=== PATIENT | female | born 1965 | race Caucasian/White ===

== ENCOUNTER 2021-05-23 17:00 | Emergency (ER) | payer OTHER ==
[2021-05-23 17:08] VITALS: BP 134/89; PULSE 74; TEMP 97.9; BMI 31.7
[2021-05-23] MEDS ORDERED: KETOROLAC TROMETHAMINE 30 MG/1 ML VIAL IM ONE (18:24)
[2021-05-23] MEDS ORDERED: LIDOCAINE 5% TOPICAL PATCH TP ONE ×2 (18:24→20:22)
[2021-05-23] MEDS ORDERED: CYCLOBENZAPRINE HCL 10 MG TABLET (FP) PO ONE (18:27)
[2021-05-23] MEDS ORDERED: LIDOCAINE 5% TOPICAL PATCH ONE ×2 (18:30→20:24)
[2021-05-23] MEDS ORDERED: KETOROLAC TROMETHAMINE 30 MG/1 ML VIAL ONE (18:30)
[2021-05-23] MEDS ORDERED: CYCLOBENZAPRINE HCL 10 MG TABLET (FP) ONE (18:30)
[2021-05-24] MEDS ORDERED: LIDOCAINE PATCH REMOVAL MC SCH ×2 (07:00→08:30)
== END 2021-05-23 20:46 | disposition home or self-care (01) ==
LOC: JERFT 17:00
PROC: 3E0233Z Introduction of Anti-inflammatory into Muscle, Percutaneous Approach (ICD-10-PCS; principal; 2021-05-23)
DX: S93.492A Sprain of other ligament of left ankle, initial encounter (principal); M54.6 Pain in thoracic spine; V49.50XA Passenger injured in collision with unspecified motor vehicles in traffic accident, initial encounter
CPT/HCPCS: 72070-TC-FY; 73610-TC-LT-FY; 73630-TC-LT; 99284-25

== ENCOUNTER 2021-06-03 04:26 | Day surgery (SDC) | payer OTHER ==
[2021-06-01 18:34] VITALS: BMI 34.1
[2021-06-03] MEDS ORDERED: BUPIVACAINE HCL/PF 0.25% (2.5MG/ML) 10 ML VIAL ONE (12:32)
[2021-06-03] MEDS ORDERED: BUPIVACAINE HCL/PF 0.25% (2.5MG/ML) 10 ML VIAL IJ ONE (12:33)
[2021-06-03] MEDS ORDERED: IOHEXOL 180 MG/1 ML ML IJ ONE (12:33)
[2021-06-03] MEDS ORDERED: LIDOCAINE HCL 1%, 10 MG/ML (20ML VIAL) INF ONE (12:34)
[2021-06-03 13:03] VITALS: BP 126/77; PULSE 83; TEMP 98.2
== END 2021-06-03 12:56 | disposition home or self-care (01) ==
LOC: JASU-SURG 04:26
PROVIDERS: ATTEND Pain Medicine Pain Medicine
PROC: BQ41ZZZ Ultrasonography of Left Hip (ICD-10-PCS; 2021-06-03)
PROC: 3E0U3BZ Introduction of Anesthetic Agent into Joints, Percutaneous Approach (ICD-10-PCS; principal; 2021-06-03 11:15)
DX: M16.12 Unilateral primary osteoarthritis, left hip (principal)

== ENCOUNTER 2021-12-02 04:17 | Day surgery (SDC) | payer OTHER ==
[2021-11-30 12:30] VITALS: BMI 34.0
[2021-12-02] MEDS ORDERED: BUPIVACAINE HCL/PF 0.75% 10 ML VIAL ONE (07:08)
[2021-12-02] MEDS ORDERED: LIDOCAINE HCL/PF 1% SDV 5ML VIAL ONE (07:08)
[2021-12-02] MEDS ORDERED: IOHEXOL 180 MG/1 ML ML IJ ONE ×2 (10:50→10:52)
[2021-12-02] MEDS ORDERED: BUPIVACAINE HCL/PF 0.75% 10 ML VIAL NR ONE ×3 (10:50→10:57)
[2021-12-02] MEDS ORDERED: LIDOCAINE HCL 1% PRESERVATIVE FREE - 30ML VIAL IJ ONE (10:51)
[2021-12-02 11:38] VITALS: BP 145/84; PULSE 65; TEMP 97.5
== END 2021-12-02 11:50 | disposition home or self-care (01) ==
LOC: JASU-SURG 04:17
PROVIDERS: ATTEND Pain Medicine Pain Medicine
PROC: BR16YZZ Fluoroscopy of Lumbar Facet Joint(s) using Other Contrast (ICD-10-PCS; 2021-12-02)
PROC: 3E0T3BZ Introduction of Anesthetic Agent into Peripheral Nerves and Plexi, Percutaneous Approach (ICD-10-PCS; principal; 2021-12-02 10:00)
DX: M47.816 Spondylosis without myelopathy or radiculopathy, lumbar region (principal)
CPT/HCPCS: 76000-TC-FY

== ENCOUNTER → 2022-03-17 | Day surgery (SDC) | payer OTHER ==
[~2022-03-17] MED LIST: BUPIVACAINE HCL/PF 0.5% (5MG/ML) 10 ML VIAL ONE; LIDOCAINE HCL/PF 1% SDV 5ML VIAL ONE; TRIAMCINOLONE ACET 40MG/1ML VIAL ONE
== END | disposition home or self-care (01) ==
LOC: JASU-SURG 04:19
PROVIDERS: ATTEND Pain Medicine Pain Medicine
DX: Z53.8 Procedure and treatment not carried out for other reasons (principal)

== ENCOUNTER 2023-11-13 04:36 | Day surgery (SDC) | payer OTHER ==
[2023-11-07 17:40] VITALS: BMI 34.4
[2023-11-13] MEDS ORDERED: LIDOCAINE HCL/PF 1% SDV 5ML VIAL ONE (07:40)
[2023-11-13] MEDS ORDERED: BUPIVACAINE HCL/PF 0.25% (2.5MG/ML) 10 ML VIAL ONE ×2 (07:40→13:58)
[2023-11-13] MEDS ORDERED: DEXAMETHASONE SOD PHOSPHATE 10 MG/1 ML VIAL ONE ×2 (07:41→13:58)
[2023-11-13] MEDS ORDERED: ACETAMINOPHEN 500 MG TABLET (FP) PO PRN (11:33)
[2023-11-13] MEDS ORDERED: SODIUM CHLORIDE 1,000 ML IV SCH (11:45)
[2023-11-13] MEDS ORDERED: IOHEXOL 180 MG/1 ML ML IJ ONE (13:13)
[2023-11-13] MEDS ORDERED: DEXAMETHASONE SOD PHOSPHATE 10 MG/1 ML VIAL IVPUSH ONE (13:13)
[2023-11-13] MEDS ORDERED: LIDOCAINE 1% P/F 10 MG/ML VIAL INF ONE ×2 (13:13)
[2023-11-13] MEDS ORDERED: BUPIVACAINE HCL/PF 0.25% (2.5MG/ML) 10 ML VIAL IJ ONE (13:13)
[2023-11-13] MEDS ORDERED: MIDAZOLAM HCL 2 MG/2 ML SINGLE DOSE VIAL ONE (14:04)
[2023-11-13] MEDS ORDERED: GLYCOPYRROLATE 0.2 MG/1 ML VIAL ONE (14:05)
[2023-11-13 15:37] VITALS: BP 136/80; PULSE 90; RESP 20; TEMP 98.6
== END 2023-11-13 15:37 | disposition home or self-care (01) ==
LOC: JASU-SURG 04:36
PROVIDERS: ATTEND Pain Medicine Pain Medicine
PROC: 3E0T33Z Introduction of Anti-inflammatory into Peripheral Nerves and Plexi, Percutaneous Approach (ICD-10-PCS; 2023-11-13)
PROC: 3E0T3BZ Introduction of Anesthetic Agent into Peripheral Nerves and Plexi, Percutaneous Approach (ICD-10-PCS; principal; 2023-11-13 14:45)
DX: G89.4 Chronic pain syndrome (principal)
CPT/HCPCS: 76000-TC-FY; J1100

== ENCOUNTER 2024-07-17 04:12 | Day surgery (SDC) | payer OTHER ==
[2024-07-14 15:13] VITALS: BMI 34.4
[2024-07-17 08:41] VITALS: RESP 20
[2024-07-17] MEDS: LIDOCAINE 1% P/F 10 MG/ML VIAL PNB ONE (10:53)
[2024-07-17] MEDS: DEXAMETHASONE SOD PHOSPHATE 10 MG/1 ML VIAL IVPUSH ONE (10:54)
[2024-07-17] MEDS: IOHEXOL 180 MG/1 ML ML IJ ONE ×3 (10:58)
[2024-07-17 11:24] VITALS: PULSE 64
[2024-07-17 11:39] VITALS: BP 120/70; TEMP 97
[2024-07-17] MEDS ORDERED: ACETAMINOPHEN 500 MG TABLET (FP) PO PRN (21:16)
== END 2024-07-17 11:39 | disposition home or self-care (01) ==
LOC: JASU-SURG 04:12
PROVIDERS: ATTEND Pain Medicine Pain Medicine
PROC: 3E0R3BZ Introduction of Anesthetic Agent into Spinal Canal, Percutaneous Approach (ICD-10-PCS; 2024-07-17)
PROC: 3E0R33Z Introduction of Anti-inflammatory into Spinal Canal, Percutaneous Approach (ICD-10-PCS; principal; 2024-07-17 09:45)
DX: M54.16 Radiculopathy, lumbar region (principal)
CPT/HCPCS: 76000-TC-FY; J1100